=== PATIENT | female | born 1960 | race Caucasian/White ===

== ENCOUNTER 2018-01-17 09:21 | Emergency (ER) | payer BC ==
[2018-01-17] MEDS ORDERED: ONDANSETRON 4 MG/2 ML VIAL IVP ONE (09:28)
[2018-01-17] MEDS ORDERED: NS 1,000 ML IV ONE (09:28)
[2018-01-17] MEDS ORDERED: HYDROmorphONE/DILAUDID 2 MG/ML INJ IVP ONE (09:28)
--- NOTE | 2018-01-17 09:30 | EDPHY ---
H & P Time Seen by Provider: 01/17/18 09:24 Constitutional: Initial Vital Signs Temperature (C) 36.8 C 01/17/18 09:38 Heart Rate 89 01/17/18 09:38 Respiratory Rate 18 01/17/18 09:38 Blood Pressure 136/107 H 01/17/18 09:38 O2 Sat (%) 97 01/17/18 09:38 O2 Delivery Mode Room Air Allergies/Adverse Reactions: latex Allergy (Verified 01/17/18 09:38) metoprolol Allergy (Verified 01/17/18 09:38) Home Medications: Medication Instructions Recorded Pantoprazole Sodium [Protonix] 20 mg PO DAILY #30 tablet. 01/17/18 Medical Decision Making - Diagnostics Imaging Results: Imaging Impressions Abdomen Ultrasound 01/17/18 09:29 Impression: 1. No cholelithiasis, biliary dilation, hydronephrosis, or free fluid. 2. Normal caliber atherosclerotic aorta. Findings discussed with emergency department physician, Flaco Dodd MD on January 17, 2018 at 10:[address] 01/17/18 10:32 Impression: 1. Query gastritis. No perforated ulcer or localized intraabdominal inflammatory process. 2. Nonobstructing tiny distal left ureteral calculus and right nephrolithiasis. No hydronephrosis. 3. Minimal sigmoid diverticulosis and right-sided constipation. Findings discussed with emergency department physician, Flaco Dodd MD on January 17, 2018 at 11:13 a.m. Imaging: Discussed imaging studies w/ teacher physically impaired Radiologist, I viewed and interpreted images myself ED Course/Re-evaluation: CHIEF COMPLAINT: Chest tightness, back pain, nausea HISTORY OF PRESENT ILLNESS: The patient is a 57 y/o female with an elevated calcium score complaining of chest tightness radiating to her right shoulder blade and nausea that woke her from sleep this morning. She's had milder symptoms intermittently for several weeks that seem to be worse after eating and feel similar to indigestion. Early this morning she woke from sleep with severe pain underneath her right scapula with associated chest tightness and nausea. No associated dyspnea, diaphoresis, or exertional exacerbation of symptoms. No recent trauma or illness. REVIEW OF SYSTEMS: A 10 point review of systems was performed and is negative with the exception of the elements mentioned in the history of present illness. PHYSICAL EXAM: HR, BP, O2 Sat, RR. Temp noted General Appearance: Alert, well hydrated, appropriate, and appears uncomfortable. Head: Atraumatic without scalp tenderness or obvious injury Eyes: Pupils equal, round, reactive to light and accommodation, EOMI, no trauma , no injection. Nose: Atraumatic, no rhinorrhea, clear. Throat: Mucus membranes moist. Neck: Supple, non-tender, no lymphadenopathy. Respiratory: No retractions, no distress, no wheezes, and no accessory muscle use. Lungs are clear to auscultation bilaterally. Cardiovascular: Regular rate and rhythm, no murmurs, rubs, or gallops. Good capillary refill all extremities. Gastrointestinal: Abdomen is soft, severe RUQ tenderness with positive Disla's sign, non-distended, no masses, no rebound, no guarding, no peritoneal signs. Musculoskeletal: Normal active ROM of all extremities, atraumatic. Neurological: Alert, appropriate, and interactive. The patient has non-focal cranial nerves, motor, sensory, and cerebellar exam. Skin: No rashes, good turgor, no nodules on palpation. PAST MEDICAL HISTORY: Elevated calcium score (unknown what number) on medication. PAST SURGICAL HISTORY: Hysterectomy SOCIAL HISTORY: Lives in [place]. Prior doctors at [facility], no current providers. DIAGNOSTICS/PROCEDURES/CRITICAL CARE TIME: The 12 lead EKG was interpreted by myself. Sinus mechanism rate 86. See hard copy and/or "tracemaster" electronic copy for interpretation. Abdominal US: negative Abdominal CT: negative DIFFERENTIAL DIAGNOSIS: The differential diagnosis for the patient's chest pain included but was not limited to myocardial ischemia, pulmonary embolus, chest wall pain, pleural inflammation, and pulmonary infectious causes. The differential diagnosis for the patient's abdominal pain included but was not limited to ovarian cyst, pelvic inflammatory disease, ovarian torsion, urinary tract infection, ectopic , cholecystitis, and appendicitis. MEDICAL DECISION MAKING: This is a 57 y/o female with a known elevated calcium score who presents with moderate-severe pain underneath her right scapula with associated chest tightness and nausea. She has had intermittent and less severe episodes over the last few weeks after eating. She has severe RUQ tenderness at McBurney's point on exam and appears anxious. Presentation most indicative of gall bladder process, will rule out cardiac causes as well. Plan for IV, labs, UA, EKG, abdominal US, and symptom management. 1L IV NS, 0.5mg IV Dilaudid, 4mg IV Zofran ordered. Mildly elevated WBC. Normal LFTs and lipase. US is negative. CT abdomen/pelvis ordered. CT negative. Patient continues to have RUQ pain. GI cocktail ordered. 1200: Patient has had good resolution of her symptoms with GI cocktail and is tolerating PO fluids and food here. She will be discharged home with script for Protonix for possible gastritis and referral to GI for follow up. Return precautions discussed. She is comfortable with this plan. - Data Points Laboratory Results: Laboratory Results 01/17/18 09:36 01/17/18 09:36 01/17/18 01/17/18 01/17/18 10:20 10:20 09:52 WBC RBC Hgb POC Hgb 15.0 gm/dL gm/dL (12.6-16.3) Hct POC Hct 44 % % (38-47) MCV MCH MCHC RDW Plt Count MPV Neut % (Auto) Lymph % (Auto) [place] % (Auto) Eos % (Auto) Baso % (Auto) Nucleat RBC Rel Count Absolute Neuts (auto) Absolute Lymphs (auto) Absolute Monos (auto) Absolute Eos (auto) Absolute Basos (auto) Absolute Nucleated RBC Immature Gran % Immature Gran # PT 17.5 SEC H SEC (12.0-15.0) INR 1.42 H (0.83-1.16) APTT 37.4 SEC SEC (23.0-38.0) POC Sodium 142 mEq/L mEq/L (135-145) Sodium POC Potassium 5.2 mEq/L H mEq/L (3.3-5.0) Potassium POC Chloride 109 mEq/L mEq/L (97-110) Chloride Carbon Dioxide Anion Gap POC BUN 19 mg/dL mg/dL (7-23) BUN Creatinine POC Creatinine 0.5 mg/dL L mg/dL (0.6-1.0) Estimated GFR Glucose POC Glucose 89 mg/dL mg/dL (70-100) Calcium Total Bilirubin Conjugated Bilirubin Unconjugated Bilirubin AST ALT Alkaline Phosphatase Troponin I Total Protein Albumin Lipase Urine Color PALE YELLOW Urine Appearance CLEAR Urine pH 8.0 H (5.0-7.5) Ur Specific [place] 1.008 (1.002-1.030) Urine Protein NEGATIVE (NEGATIVE) Urine Ketones NEGATIVE (NEGATIVE) Urine Blood NEGATIVE (NEGATIVE) Urine Nitrate NEGATIVE (NEGATIVE) Urine Bilirubin NEGATIVE (NEGATIVE) Urine Urobilinogen NEGATIVE EU EU (0.2-1.0) Ur Leukocyte Esterase NEGATIVE (NEGATIVE) Urine Glucose NEGATIVE (NEGATIVE) 01/17/18 01/17/18 01/17/18 09:36 09:36 09:36 WBC 10.62 10^3/uL H 10^3/uL (3.80-9.50) RBC 5.39 10^6/uL H 10^6/uL (4.18-5.33) Hgb 17.5 g/dL H g/dL (12.6-16.3) POC Hgb Hct 50.0 % H % (38.0-47.0) POC Hct MCV 92.8 fL fL (81.5-99.8) MCH 32.5 pg pg (27.9-34.1) MCHC 35.0 g/dL g/dL (32.4-36.7) RDW 12.4 % % (11.5-15.2) Plt Count 278 10^3/uL 10^3/uL (150-400) MPV 9.5 fL fL (8.7-11.7) Neut % (Auto) 83.0 % H % (39.3-74.2) Lymph % (Auto) 10.7 % L % (15.0-45.0) [place] % (Auto) 4.8 % % (4.5-13.0) Eos % (Auto) 0.8 % % (0.6-7.6) Baso % (Auto) 0.4 % % (0.3-1.7) Nucleat RBC Rel Count 0.0 % % (0.0-0.2) Absolute Neuts (auto) 8.81 10^3/uL H 10^3/uL (1.70-6.50) Absolute Lymphs (auto) 1.14 10^3/uL 10^3/uL (1.00-3.00) Absolute Monos (auto) 0.51 10^3/uL 10^3/uL (0.30-0.80) Absolute Eos (auto) 0.09 10^3/uL 10^3/uL (0.03-0.40) Absolute Basos (auto) 0.04 10^3/uL 10^3/uL (0.02-0.10) Absolute Nucleated RBC 0.00 10^3/uL 10^3/uL (0-0.01) Immature Gran % 0.3 % % (0.0-1.1) Immature Gran # 0.03 10^3/uL 10^3/uL (0.00-0.10) PT REJ INR TNP APTT TNP POC Sodium Sodium 144 mEq/L mEq/L (135-145) POC Potassium Potassium 4.2 mEq/L mEq/L (3.5-5.2) POC Chloride Chloride 105 mEq/L mEq/L (97-110) Carbon Dioxide 25 mEq/l mEq/l (22-31) Anion Gap 14 mEq/L mEq/L (8-16) POC BUN BUN 17 mg/dL mg/dL (7-23) Creatinine 0.6 mg/dL mg/dL (0.6-1.0) POC Creatinine Estimated GFR > 60 Glucose 86 mg/dL mg/dL (70-100) POC Glucose Calcium 9.4 mg/dL mg/dL (8.5-10.4) Total Bilirubin 1.1 mg/dL mg/dL (0.1-1.4) Conjugated Bilirubin 0.3 mg/dL mg/dL (0.0-0.5) Unconjugated Bilirubin 0.8 mg/dL mg/dL (0.0-1.1) AST 26 IU/L IU/L (14-46) ALT 38 IU/L IU/L (9-52) Alkaline Phosphatase 65 IU/L IU/L (38-126) Troponin I < 0.012 ng/mL ng/mL (0.000-0.034) Total Protein 7.7 g/dL g/dL (6.3-8.2) Albumin 4.4 g/dL g/dL (3.5-5.0) Lipase 113 IU/L IU/L (23-300) Urine Color Urine Appearance Urine pH Ur Specific [place] Urine Protein Urine Ketones Urine Blood Urine Nitrate Urine Bilirubin Urine Urobilinogen Ur Leukocyte Esterase Urine Glucose Medications Given: Discontinued Medications Al Hydroxide/Mg Hydroxide (Maalox Susp) 30 ml PO ONCE ONE Stop: 01/17/18 11:08 Last Admin: 05/06/18 11:13 Dose: 30 ml Hydromorphone HCl (Dilaudid) 0.5 mg IVP EDNOW ONE Stop: 01/17/18 09:29 Last Admin: 01/17/18 09:46 Dose: 0.5 mg Hyoscyamine Sulfate (Levsin, Hyomax-Sl) 0.25 mg PO ONCE ONE Stop: 01/17/18 11:08 Last Admin: 01/17/18 11:13 Dose: 0.25 mg Sodium Chloride (Ns) 1,000 mls @ 0 mls/hr IV EDNOW ONE; Wide Open PRN Reason: Protocol Stop: 01/17/18 09:29 Last Admin: 01/17/18 09:46 Dose: 1,000 mls Lidocaine (Lidocaine 2% Viscous) 15 ml PO ONCE ONE Stop: 01/17/18 11:08 Last Admin: 01/17/18 11:13 Dose: 15 ml Ondansetron HCl (Zofran) 4 mg IVP EDNOW ONE Stop: 01/17/18 09:29 Last Admin: 01/17/18 09:46 Dose: 4 mg Point of Care Test Results: 01/17/18 09:52 POC Sodium 142 POC Potassium 5.2 H POC Chloride 109 POC BUN 19 POC Creatinine 0.5 L POC Glucose 89 Departure - Departure Disposition: Home, Routine, Self-Care Clinical Impression: Abdominal pain Qualifiers: Abdominal location: right upper quadrant Qualified Code(s): R10.11 - Right upper quadrant pain Gastritis Qualifiers: Gastritis type: other gastritis Chronicity: acute Gastritis bleeding: presence of bleeding unspecified Qualified Code(s): K29.00 - Acute gastritis without bleeding Condition: Good Instructions: Pantoprazole (By mouth), Gastritis (ED) Additional Instructions: 1. Take Protonix as prescribed for gastritis. 2. 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 3. Return to the ED for any worsening of condition. Referrals: Bob Auguste MD [Medical Doctor] - As per Instructions Prescriptions: Pantoprazole Sodium [Protonix] 20 mg PO DAILY #30 tablet. Report Scribed for: Flaco Dodd Report Scribed by: Riya Pleitez Date of Report: 01/17/18 Time of Report: 09:50
--- NOTE | 2018-01-17 09:30 | CPEKG ---
Heart Rate: 86 RR Interval: 698 P-R Interval: 180 QRSD Interval: 80 QT Interval: 340 QTC Interval: 407 P [place]: 78 QRS [place]: -31 T Wave [place]: 72 EKG Severity - OTHERWISE NORMAL ECG - EKG Impression: SINUS RHYTHM EKG Impression: LEFT AXIS DEVIATION Electronically Signed By: Flaco Dodd 17-Jan-2018 14:44:19
[2018-01-17 09:47] LABS: PLATELET COUNT 278 10^3/uL (150-400)
[2018-01-17 10:34] LABS: INR 1.42 (0.83-1.16); PROTIME(PATIENT) 17.5 SEC (12.0-15.0)
[2018-01-17] MEDS ORDERED: IOPAMIDOL (ISOVUE-300) 100 ML BTL ONE (10:35)
[2018-01-17] MEDS ORDERED: MAG HYDROX/AL HYDROX/SIMETH 30 ML UDCUP PO ONE (11:07)
[2018-01-17] MEDS ORDERED: HYOSCYAMINE SULFATE 0.125 MG TAB PO ONE (11:07)
[2018-01-17] MEDS ORDERED: LIDOCAINE 2% VISCOUS 15 ML UDCUP PO ONE (11:07)
[2018-01-17 11:17] VITALS: BP 104/75
== END 2018-01-17 12:10 | disposition home or self-care (01) ==
DX: K29.00 Acute gastritis without bleeding (principal); E86.9 Volume depletion, unspecified; Z91.040 Latex allergy status
CPT/HCPCS: 82947-QW; 96374; J1170; J2405; Q9967

== ENCOUNTER → 2018-02-19 | Outpatient (CLI) | payer OTHER | LOC: FIMAGING 08:59 | PROVIDERS: ATTEND Internal Medicine Gastroenterology | DX: R10.13 Epigastric pain (principal) | CPT/HCPCS: 78227; A9537 ==